=== PATIENT | female | born 1980 | race Two or more races ===

== ENCOUNTER 2018-05-19 20:00 | Emergency (ER) | payer SELFPAY ==
[~2018-05-19] VITALS: Ht 154.9 cm; Wt 75.0 kg
[2018-05-19 20:06] VITALS: BP 147/92
[2018-05-19 21:23] LABS: BASOPHILS % (AUTO) 0 % (0-1); EOSINOPHILS # (AUTO) 0.02 x10^3/uL (0-0.4); EOSINOPHILS % (AUTO) 1 % (1-7); LYMPHOCYTES % (AUTO) 28 % (22-44); MD NO; MEAN CORPUSCULAR HEMOGLOBIN 30.9 pg (27.0-34.8); MEAN CORPUSCULAR HGB CONC 34.7 g/dL (32.4-35.8); MEAN CORPUSCULAR VOLUME 89.1 fL (80-100); MEAN PLATELET VOLUME 13.4 fL (7.4-10.4); MONOCYTES # (AUTO) 0.37 x10^3/uL (0.2-0.8); MONOCYTES % (AUTO) 7 % (2-9); NEUTROPHILS # (AUTO) 3.23 x10^3/uL (1.8-6.8); NEUTROPHILS % (AUTO) 64 % (42-75); PLATELET COUNT 130 x10^3/uL (130-400); RED BLOOD COUNT 4.67 x10^6/uL (3.82-5.3); RED CELL DISTRIBUTION WIDTH 13.1 % (9.6-15.2)
[2018-05-19] MEDS ORDERED: ACETAMINOPHEN 325 MG TABLET ONE (21:24)
[2018-05-19 21:29] LABS: ALBUMIN 3.3 g/dL (3.4-5.0); ANION GAP 8 mmol/L (5-15); CALCIUM 8.6 mg/dL (8.5-10.1); CHLORIDE 102 mmol/L (98-107); CREATININE 0.81 mg/dL (0.55-1.02)
[2018-05-19] MEDS ORDERED: ACETAMINOPHEN 325 MG TABLET PO ONE (21:30)
[2018-05-19] MEDS ORDERED: CEPHALEXIN 500 MG CAPSULE ONE (21:44)
[2018-05-19] MEDS ORDERED: IBUPROFEN 200 MG TABLET ONE (21:44)
[2018-05-19] MEDS ORDERED: CEPHALEXIN 500 MG CAPSULE PO ONE (22:00)
[2018-05-19] MEDS ORDERED: IBUPROFEN 200 MG TABLET PO ONE (22:00)
== END 2018-05-19 22:15 | disposition home or self-care (01) ==
LOC: ED 21:24
DX: O26.891 Other specified pregnancy related conditions, first trimester (principal); L03.115 Cellulitis of right lower limb; E11.65 Type 2 diabetes mellitus with hyperglycemia; O16.1 Unspecified maternal hypertension, first trimester; M19.071 Primary osteoarthritis, right ankle and foot; Z3A.01 Less than 8 weeks gestation of pregnancy
CPT/HCPCS: 36415; 80048; 82040; 84550; 84702; 85025; 99284

== ENCOUNTER 2018-06-21 19:52 | Emergency (ER) | payer SELFPAY ==
[~2018-06-21] VITALS: Ht 152.4 cm; Wt 76.1 kg
[2018-06-21 20:28] LABS: BASOPHILS # (AUTO) 0.05 x10^3/uL (0-0.1); BASOPHILS % (AUTO) 1 % (0-1); EOSINOPHILS % (AUTO) 1 % (1-7); LYMPHOCYTES # (AUTO) 2.68 x10^3/uL (1-3.4); LYMPHOCYTES % (AUTO) 27 % (22-44); MD NO; MEAN CORPUSCULAR HEMOGLOBIN 30.8 pg (27.0-34.8); MEAN CORPUSCULAR HGB CONC 33.9 g/dL (32.4-35.8); MEAN CORPUSCULAR VOLUME 90.9 fL (80-100); MEAN PLATELET VOLUME 12.1 fL (7.4-10.4); MONOCYTES # (AUTO) 0.33 x10^3/uL (0.2-0.8); MONOCYTES % (AUTO) 3 % (2-9); NEUTROPHILS # (AUTO) 6.63 x10^3/uL (1.8-6.8); NEUTROPHILS % (AUTO) 68 % (42-75); PLATELET COUNT 170 x10^3/uL (130-400); RED BLOOD COUNT 4.65 x10^6/uL (3.82-5.3); RED CELL DISTRIBUTION WIDTH 13.7 % (9.6-15.2)
--- NOTE | 2018-06-21 20:33 | NUR ---
Assumed care of patient. C/O scant VB. Patient states she is about 6 weeks , but reports her LMP to be sometime in March. C/O cramping. Reports palpitations 2 weeks ago, but since resolved. Family at bedside. Will continue to monitor.
[2018-06-21 20:39] LABS: ALBUMIN 3.6 g/dL (3.4-5.0); ANION GAP 10 mmol/L (5-15); CALCIUM 9.4 mg/dL (8.5-10.1); CHLORIDE 101 mmol/L (98-107); CREATININE 0.63 mg/dL (0.55-1.02)
--- NOTE | 2018-06-21 20:42 | NUR ---
Patient to US.
[2018-06-21 20:52] LABS: MICROSCOPIC AUTO
[2018-06-21 20:55] LABS: CULTURE INDICATED? YES
--- NOTE | 2018-06-21 21:45 | NUR ---
SBAR report received from RNBonita. Pt resting on family arvin at bedside.
--- NOTE | 2018-06-21 21:59 | NUR ---
Dr. Muniz, with band sawing machine operator computer, at bedside to discuss ED findings and POC.
[2018-06-21 22:25] VITALS: BP 115/71
--- NOTE | 2018-06-21 22:26 | NUR ---
Patient/Caregiver given discharge instructions and they have confirmed that they understand the instructions. Patient ambulatory with steady gait.
== END 2018-06-21 22:26 | disposition home or self-care (01) ==
LOC: ED 21:07
DX: O03.4 Incomplete spontaneous abortion without complication (principal); I10 Essential (primary) hypertension; E11.9 Type 2 diabetes mellitus without complications
CPT/HCPCS: 36415; 76801; 80048; 81001; 82040; 84702; 85025; 86901; 87086; 99284

== ENCOUNTER 2020-05-20 17:05 | Emergency (ER) | payer SELFPAY ==
[~2020-05-20] VITALS: Ht 152.4 cm; Wt 78.2 kg
--- NOTE | 2020-05-20 17:21 | NUR ---
8 days ago an abcess appeared to RLQ of abd. pt states she has felt nausous and vomited one time. vss. daughter is translating for pt
[2020-05-20] MEDS ORDERED: LIDOCAINE-MPF 1%, 2ML ONE (17:24)
[2020-05-20] MEDS ORDERED: LIDOCAINE 1%-EPI 1:100K, 20ML INFIL ONE (17:30)
[2020-05-20 18:05] VITALS: BP 132/71
== END 2020-05-20 18:38 | disposition home or self-care (01) ==
LOC: ED 18:30
DX: O26.891 Other specified pregnancy related conditions, first trimester (principal); L02.211 Cutaneous abscess of abdominal wall; O24.419 Gestational diabetes mellitus in pregnancy, unspecified control; Z3A.12 12 weeks gestation of pregnancy
CPT/HCPCS: 10060; 99282

== ENCOUNTER 2020-05-25 14:21 | Emergency (ER) | payer SELFPAY ==
[~2020-05-25] VITALS: Ht 157.5 cm; Wt 77.6 kg
--- NOTE | 2020-05-25 16:25 | NUR ---
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
[2020-05-25 17:30] VITALS: BP 145/82
== END 2020-05-25 17:32 | disposition home or self-care (01) ==
LOC: ED 17:16
DX: L73.8 Other specified follicular disorders (principal); E11.65 Type 2 diabetes mellitus with hyperglycemia; I10 Essential (primary) hypertension; M19.90 Unspecified osteoarthritis, unspecified site
CPT/HCPCS: 82962; 99283

== ENCOUNTER 2020-09-18 00:21 | Emergency (ER) | payer SELFPAY ==
[~2020-09-18] VITALS: Ht 157.5 cm; Wt 77.3 kg
[2020-09-18 00:23] VITALS: BP 163/91
--- NOTE | 2020-09-18 00:58 | NUR ---
PT AMBULATED TO ROOM. C/O VAG BLEED JUST STARTED APPROX ONE HOUR AGO. PT STATES SHE WOKE UP AND FELT LIKE HER PERIOD WAS STARTING, BUT TODAY THE FLOW IS A LOT AND WOULDN'T STOP. PT CAME IN TO BE CHECKED UP. MED STUDENT TO BEDSIDE TO EVAL PT.
[2020-09-18 02:05] LABS: ALANINE AMINOTRANSFERASE 15 U/L (12-78); ALBUMIN 3.6 g/dL (3.4-5.0); ANION GAP 7 mmol/L (5-15); CALCIUM 8.6 mg/dL (8.5-10.1); CHLORIDE 103 mmol/L (98-107)
[2020-09-18 02:07] LABS: BASOPHILS % (AUTO) 1 % (0-1); EOSINOPHILS % (AUTO) 1 % (1-7); LYMPHOCYTES % (AUTO) 24 % (22-44); MEAN CORPUSCULAR HEMOGLOBIN 30.5 pg (27.0-34.8); MEAN CORPUSCULAR HGB CONC 34.3 g/dL (32.4-35.8); MEAN PLATELET VOLUME 12.3 fL (7.4-10.4); MONOCYTES % (AUTO) 5 % (2-9); NEUTROPHILS % (AUTO) 70 % (42-75); PLATELET COUNT 151 x10^3/uL (130-400); RED BLOOD COUNT 4.37 x10^6/uL (3.82-5.3); RED CELL DISTRIBUTION WIDTH 12.7 % (9.6-15.2)
[2020-09-18 02:08] LABS: MD NO
[2020-09-18 02:09] LABS: ALKALINE PHOSPHATASE 64 U/L (45-117); BILIRUBIN,TOTAL 0.3 mg/dL (0.2-1.0); TOTAL PROTEIN 6.7 g/dL (6.4-8.2)
--- NOTE | 2020-09-18 02:22 | NUR ---
ULTRASOUND CALLED TO EXPEDITE READ OF TRANSVAGINBAL ULTRASOUND
[2020-09-18 02:50] LABS: MICROSCOPIC AUTO
[2020-09-18] MEDS ORDERED: KETOROLAC 60 MG/2 ML ONE (02:54)
[2020-09-18] MEDS ORDERED: HYDROcodone/APAP 5/325 TABLET ONE (02:55)
[2020-09-18] MEDS ORDERED: KETOROLAC 60 MG/2 ML IM ONE (03:00)
[2020-09-18] MEDS ORDERED: HYDROcodone/APAP 5/325 TABLET PO ONE (03:00)
--- NOTE | 2020-09-18 03:17 | NUR ---
MED STUDENT TO ROOM, TO UPDATE PT ON TREATMENT AND CARE. PT A&OX4. C/O MILD PAIN TO LOWER ABDOMEN WHEN SHE CAME IN. PT TO BE D/C'D AND PAPERWORK BEING PRINTED.
--- NOTE | 2020-09-18 03:45 | NUR ---
PT A&OX4, NO ACUTE DISTRESS AT THIS TIME. F/U AND D/C INSTRUCTIONS GIVEN TO PT AND SHE V/U. PRESCRIPTIONS GIVEN TO PT WELL. PT AMBULATORY AND D/C'D WITHOUT INCIDENT.
[2020-09-18] MEDS ORDERED: METF500T17 PO (07:36)
[2020-09-18] MEDS ORDERED: LISI-167 PO (07:38)
== END 2020-09-18 03:49 | disposition home or self-care (01) ==
LOC: ED 01:00
DX: R10.30 Lower abdominal pain, unspecified (principal); N93.8 Other specified abnormal uterine and vaginal bleeding; E11.9 Type 2 diabetes mellitus without complications
CPT/HCPCS: 36415; 76830; 80053; 81001; 83690; 84703; 85025; 86901; 96372; 99284; J1885; 84702

== ENCOUNTER 2020-09-18 07:08 | Emergency (ER) | payer SELFPAY ==
[~2020-09-18] VITALS: Ht 157.5 cm; Wt 76.0 kg
--- NOTE | 2020-09-18 07:29 | NUR ---
PATIENT WALKED BACK FROM TRIAGE WITH CHIEF C/O VAGINAL BLEEDING. PER DAUGHTER PATIENT STARTED BLEEDING EARLY THIS MORNING WITH BLOOD CLOTS. PATIENT IN ED EARLIER AND DISCHARGED PER DAUGHTER. PATIENT WENT HOME AND UNABLE TO SLEEP, FEELING DIZZY AND SOAKING THROUGH 3 ADULT DIAPERS IN THE LAST 4 HOURS. SUN PARKS, DAUGHTER AT BEDSIDE, CALL LIGHT WITHIN REACH.
[2020-09-18] MEDS ORDERED: METF500T17 PO (07:36)
[2020-09-18] MEDS ORDERED: LISI-167 PO (07:38)
[2020-09-18] MEDS ORDERED: SODIUM CHLORIDE 0.9% 1,000ML IVBOLUS ONE (08:00)
[2020-09-18] MEDS ORDERED: ONDANSETRON 2MG/ML, 2ML IVPush ONE (08:00)
[2020-09-18] MEDS ORDERED: ONDANSETRON 2MG/ML, 2ML ONE (08:16)
[2020-09-18 08:21] LABS: BASOPHILS % (AUTO) 1 % (0-1); EOSINOPHILS % (AUTO) 0 % (1-7); LYMPHOCYTES % (AUTO) 14 % (22-44); MEAN CORPUSCULAR HEMOGLOBIN 30.3 pg (27.0-34.8); MEAN CORPUSCULAR HGB CONC 33.6 g/dL (32.4-35.8); MEAN PLATELET VOLUME 12.6 fL (7.4-10.4); MONOCYTES % (AUTO) 3 % (2-9); NEUTROPHILS % (AUTO) 81 % (42-75); PLATELET COUNT 194 x10^3/uL (130-400); RED BLOOD COUNT 3.84 x10^6/uL (3.82-5.3); RED CELL DISTRIBUTION WIDTH 12.5 % (9.6-15.2)
[2020-09-18 08:23] LABS: MD NO
[2020-09-18 08:57] LABS: ANION GAP 8 mmol/L (5-15); CALCIUM 7.9 mg/dL (8.5-10.1); CHLORIDE 102 mmol/L (98-107); CREATININE 0.87 mg/dL (0.55-1.02)
--- NOTE | 2020-09-18 09:00 | NUR ---
PATIENT RESTING IN GURNEY, TALKING ON PHONE. DAUGTHER REPORTS PATIENT NOT NAUSEATED ANYMORE, VSS, CALL LIGHT WITHIN REACH. WAITING FOR LABS TO RESULT.
--- NOTE | 2020-09-18 09:28 | NUR ---
ERPA AT BEDSIDE TO DISCUSS POC.
[2020-09-18 09:32] VITALS: BP 93/33
--- NOTE | 2020-09-18 09:50 | NUR ---
IV removed with tip intact. Patient given discharge instructions and prescription and they have confirmed that they understand the instructions. Patient stable and ambulatory with steady gait from ED with daughter.
== END 2020-09-18 09:50 | disposition home or self-care (01) ==
LOC: ED 09:10
DX: N93.9 Abnormal uterine and vaginal bleeding, unspecified (principal); R42 Dizziness and giddiness; E11.9 Type 2 diabetes mellitus without complications
CPT/HCPCS: 36415; 80048; 82040; 84702; 85025; 96361; 96374; 99283; J2405; J7030